=== PATIENT | female | born 1965 | race Caucasian/White ===

== ENCOUNTER 2024-06-24 12:24 | Emergency (ER) | payer OTHER ==
[2024-06-24] MEDS: Take Home: Cyclobenzaprine 10 MG Tab, 4 Tab Pack PO ONE (13:23)
[2024-06-24] MEDS: Take Home: predniSONE 20 MG, 2 Tab Pack PO ONE (13:23)
== END 2024-06-24 13:30 | disposition home or self-care (01) ==
LOC: CC.ED 12:24
DX: M54.31 Sciatica, right side (principal); E78.00 Pure hypercholesterolemia, unspecified; J45.909 Unspecified asthma, uncomplicated; Z79.899 Other long term (current) drug therapy
CPT/HCPCS: 99283; A9270; J7512; 99284